=== PATIENT | female | born 1990 | race Caucasian/White ===

== ENCOUNTER 2020-10-22 07:47 | Emergency (ER) | payer SELFPAY ==
[2020-10-22] MEDS ORDERED: Sodium Chloride 0.9% 10 ML Syringe FLUSH PRN (07:56)
[2020-10-22] MEDS ORDERED: Sodium Chloride 0.9% 1,000 ML IV SCH (08:00)
[2020-10-22 09:09] LABS: ACETAMINOPHEN 0 ug/mL (10-30)
--- NOTE | 2020-10-22 09:29 | EDM.PDOC ---
ED HPI GENERAL MEDICAL PROBLEM - General Chief Complaint: Skin Complaint Stated Complaint: [facility] Time Seen by Provider: 10/22/20 07:50 Source of Information: Reports: Patient History Limitations: Reports: Intoxication - History of Present Illness INITIAL COMMENTS - FREE TEXT/NARRATIVE: Patient came in by ambulance from a public area. She was complaining about skin irritation. She denied that she had been exposed to toxic or irritating substance heat flame gases or any other exposure. She acknowledges using methamphetamine. During the course of the interview she expressed interest in getting medically cleared and being discharged to a nursing home. She does have chronic psoriatic lesions treatment for which is not evident at this point. Generalized Pain Score (Numeric/FACES): 8 - Related Data Allergies Allergy/AdvReac Type Severity Reaction Status Date / Time Penicillins Allergy Hives Verified 10/22/20 07:54 Home Meds: Home Meds . [No Known Home Meds] 10/22/20 [History] Past Medical History Psychiatric History: Reports: Anxiety Dermatologic History: Reports: Psoriasis Social & Family History - Tobacco Use Tobacco Use Status *Q: Current Every Day Tobacco User Years of Tobacco use: 8 Packs/Tins Daily: 1 - Recreational Drug Use Recreational Drug Use: Yes Drug Use in Last 12 Months: Yes Recreational Drug Type: Reports: Methamphetamine Recreational Drug Use Frequency: Daily ED ROS GENERAL - Review of Systems Review Of Systems: Comprehensive ROS is negative, except as noted in HPI. ED EXAM, SKIN/RASH Exam: See Below Text/Narrative:: On exam the patient is alert and does not appear ill. However she is mildly upset and complaining of skin irritation. Head normocephalic atraumatic. PERRLA EOMI. Neck supple without jugular venous distention. Lungs clear breath sounds full and equal bilaterally. Heart regular normal rate. Abdomen soft and nontender. No peripheral edema cyanosis or clubbing. Neurologically grossly intact. Speech is fluent. Gait is symmetrical. There are various chronic appearing skin lesions consistent with diagnosis of psoriasis. These are scattered across her upper chest upper extremities and elsewhere. None appear infected excoriated or otherwise with an acute situation. Psychiatrically the patient has somewhat pressured speech and some flight of ideas. She explicitly denies suicidal or homicidal ideation. Course - Vital Signs Text/Narrative:: We set about collecting clearance labs and other evaluations for discharge to a nursing home. The patient then changed her mind and decided she needed to leave and join friends who were waiting for her. A diligent attempt was made to get the patient to stay and be evaluated and be discharged to a secure environment. She insisted on leaving. As she was oriented x3, composed, denying suicidal homicidal ideation or other destructive intent, she was discharged and encouraged to return to the emergency department at any time for any concern. As much as we thought she was in need of care there was nothing observed and no grounds to hold the patient against her will. Last Recorded V/S: Last Vital Signs Temp 36.8 C 10/22/20 07:55 Pulse 85 10/22/20 07:55 Resp 16 10/22/20 07:55 BP 137/88 10/22/20 07:55 Pulse Ox 100 10/22/20 07:55 - Orders/Labs/Meds Orders: Active Orders 24 hr Category Date Time Status CBC WITH MANUAL DIFF [HEME] Stat Lab 10/22/20 08:30 Results CORONAVIRUS COVID-19 SARABJIT [MOLEC] Stat Lab 10/22/20 08:45 Received CULTURE URINE [RM] Stat Lab 10/22/20 08:50 Received SALICYLATE [CHEM] Stat Lab 10/22/20 08:30 Received Peripheral IV Insertion Adult [OM.PC] Stat Oth 10/22/20 07:57 Ordered Labs: Laboratory Tests 10/22/20 10/22/20 10/22/20 Range/Units 08:30 08:30 08:50 WBC 5.50 (3.98-10.04) K/mm3 RBC 4.52 (3.98-5.22) M/mm3 Hgb 11.7 (11.2-15.7) gm/dl Hct 37.5 (34.1-44.9) % MCV 83.0 (79.4-94.8) fl MCH 25.9 (25.6-32.2) pg MCHC 31.2 L (32.2-35.5) g/dl RDW Std Deviation 46.5 H (36.4-46.3) fL Plt Count 413 H (182-369) K/mm3 MPV 9.0 L (9.4-12.3) fl Sodium 141 (136-145) mEq/L Potassium 3.8 (3.5-5.1) mEq/L Chloride 103 (98-107) mEq/L Carbon Dioxide 25 (21-32) mEq/L Anion Gap 16.8 H (5-15) BUN 13 (7-18) mg/dL Creatinine 0.7 (0.55-1.02) mg/dL Est Cr Clr Drug Dosing 121.69 mL/min Estimated GFR (MDRD) > 60 (>60) mL/min BUN/Creatinine Ratio 18.6 H (14-18) Glucose 98 (74-106) mg/dL Calcium 9.4 (8.5-10.1) mg/dL Magnesium 1.9 (1.8-2.4) mg/dl Total Bilirubin 0.5 (0.2-1.0) mg/dL AST 67 H (15-37) U/L ALT 136 H (14-59) U/L Alkaline Phosphatase 74 (46-116) U/L Total Protein 8.0 (6.4-8.2) g/dl Albumin 4.0 (3.4-5.0) g/dl Globulin 4.0 gm/dL Albumin/Globulin Ratio 1.0 (1-2) TSH 3rd Generation 0.660 (0.358-3.74) uIU/mL Urine Color (Yellow) Urine Appearance (Clear) Urine pH (5.0-8.0) Ur Specific [place] (1.005-1.030) Urine Protein (Negative) Urine Glucose (UA) (Negative) Urine Ketones (Negative) Urine Occult Blood (Negative) Urine Nitrite (Negative) Urine Bilirubin (Negative) Urine Urobilinogen (0.2-1.0) Ur Leukocyte Esterase (Negative) Urine RBC (0-5) /hpf Urine WBC (0-5) /hpf Ur Squamous Epith Cells (0-5) /hpf Urine Bacteria (FEW) /hpf Urine Mucus (FEW) /hpf Urine Yeast (Budding) (NOT SEEN) Urine HCG, Qual Negative (NEGATIVE) Urine Opiates Screen (LEYMTW=044) Ur Buprenorphine Scrn (CUTOFF=10) Ur Oxycodone Screen (SGE2TO=716) Urine Methadone Screen (PYFQXI=490) Ur Propoxyphene Screen (QOSZOB=668) Acetaminophen 0 L (10-30) ug/mL Ur Barbiturates Screen (CSOXTV=001) Ur Tricyclics Screen (SOLTNY=701) Ur Phencyclidine Scrn (CUTOFF=25) Ur Amphetamine Screen (BHAWBW=927) U Methamphetamines Scrn (ONQVRV=955) U Benzodiazepines Scrn (RZLPVV=526) U Cocaine Metab Screen (ZWKKFN=693) U Marijuana (THC) Screen (CUTOFF=50) Ethyl Alcohol 0.00 (0.00) gm% 10/22/20 10/22/20 Range/Units 08:50 08:50 WBC (3.98-10.04) K/mm3 RBC (3.98-5.22) M/mm3 Hgb (11.2-15.7) gm/dl Hct (34.1-44.9) % MCV (79.4-94.8) fl MCH (25.6-32.2) pg MCHC (32.2-35.5) g/dl RDW Std Deviation (36.4-46.3) fL Plt Count (182-369) K/mm3 MPV (9.4-12.3) fl Sodium (136-145) mEq/L Potassium (3.5-5.1) mEq/L Chloride (98-107) mEq/L Carbon Dioxide (21-32) mEq/L Anion Gap (5-15) BUN (7-18) mg/dL Creatinine (0.55-1.02) mg/dL Est Cr Clr Drug Dosing mL/min Estimated GFR (MDRD) (>60) mL/min BUN/Creatinine Ratio (14-18) Glucose (74-106) mg/dL Calcium (8.5-10.1) mg/dL Magnesium (1.8-2.4) mg/dl Total Bilirubin (0.2-1.0) mg/dL AST (15-37) U/L ALT (14-59) U/L Alkaline Phosphatase (46-116) U/L Total Protein (6.4-8.2) g/dl Albumin (3.4-5.0) g/dl Globulin gm/dL Albumin/Globulin Ratio (1-2) TSH 3rd Generation (0.358-3.74) uIU/mL Urine Color Yellow (Yellow) Urine Appearance Slt cloudy H (Clear) Urine pH 5.5 (5.0-8.0) Ur Specific [place] > or = 1.030 (1.005-1.030) Urine Protein 1+ H (Negative) Urine Glucose (UA) Negative (Negative) Urine Ketones Negative (Negative) Urine Occult Blood 3+ H (Negative) Urine Nitrite Positive H (Negative) Urine Bilirubin Negative (Negative) Urine Urobilinogen 0.2 (0.2-1.0) Ur Leukocyte Esterase Negative (Negative) Urine RBC 10-20 H (0-5) /hpf Urine WBC 0-5 (0-5) /hpf Ur Squamous Epith Cells 5-10 H (0-5) /hpf Urine Bacteria Moderate H (FEW) /hpf Urine Mucus Few (FEW) /hpf Urine Yeast (Budding) Few H (NOT SEEN) Urine HCG, Qual (NEGATIVE) Urine Opiates Screen Negative (UVIBZM=502) Ur Buprenorphine Scrn Negative (CUTOFF=10) Ur Oxycodone Screen Negative (PHE8TM=964) Urine Methadone Screen Negative (IOYMNM=616) Ur Propoxyphene Screen Negative (MLVOQP=528) Acetaminophen (10-30) ug/mL Ur Barbiturates Screen Negative (YEBZHD=334) Ur Tricyclics Screen Negative (HPKRII=831) Ur Phencyclidine Scrn Negative (CUTOFF=25) Ur Amphetamine Screen Presumptive positive H (RQFODP=932) U Methamphetamines Scrn Presumptive positive H (VCHRXZ=777) U Benzodiazepines Scrn Negative (NDUCKV=706) U Cocaine Metab Screen Negative (ODKOZJ=772) U Marijuana (THC) Screen Presumptive positive H (CUTOFF=50) Ethyl Alcohol (0.00) gm% Meds: Medications Discontinued Medications Generic Name Dose Route Start Last Admin Trade Name Freq PRN Reason Stop Dose Admin Sodium Chloride 1,000 mls @ 150 mls/hr 10/22/20 08:00 Normal Saline IV ASDIRECTED STEVEN Sodium Chloride 10 ml 10/22/20 07:56 Sodium Chloride 0.9% 10 Ml Syringe FLUSH ASDIRECTED PRN Keep Vein Open Departure - Departure Time of Disposition: 09:32 Disposition: Home, Self-Care 01 Condition: Good Clinical Impression: Methamphetamine abuse, Psoriasis - Discharge Information Referrals: PCP,None [Primary Care Provider] - Forms: ED Department Discharge Additional Instructions: You have been seen for issues related to methamphetamine abuse. We agree with your initial desire to be discharged to a nursing home. We would have preferred that you stay for a full evaluation and a discharge to a secure environment. You are welcome to return to the hospital at any time for any concern that you may have. Should you desire drug rehabilitation we will arrange for that. Please seek medical care from your primary [facility]. Sepsis Event Note (ED) - Evaluation Sepsis Screening Result: No Definite Risk - Focused Exam Vital Signs: Vital Signs Temp Pulse Resp BP Pulse Ox 10/22/20 07:55 36.8 C 85 16 137/88 100 - My Orders Last 24 Hours: My Active Orders 10/22/20 07:57 Peripheral IV Insertion Adult [OM.PC] Stat 10/22/20 08:30 CBC WITH MANUAL DIFF [HEME] Stat SALICYLATE [CHEM] Stat 10/22/20 08:45 CORONAVIRUS COVID-19 SARABJIT [MOLEC] Stat 10/22/20 08:50 CULTURE URINE [RM] Stat - Assessment/Plan Last 24 Hours: My Active Orders 10/22/20 07:57 Peripheral IV Insertion Adult [OM.PC] Stat 10/22/20 08:30 CBC WITH MANUAL DIFF [HEME] Stat SALICYLATE [CHEM] Stat 10/22/20 08:45 CORONAVIRUS COVID-19 SARABJIT [MOLEC] Stat 10/22/20 08:50 CULTURE URINE [RM] Stat
== END 2020-10-22 09:02 | disposition home or self-care (01) ==
LOC: JD.ED 07:47
DX: F15.10 Other stimulant abuse, uncomplicated (principal); L40.9 Psoriasis, unspecified; F17.210 Nicotine dependence, cigarettes, uncomplicated; Z88.0 Allergy status to penicillin
CPT/HCPCS: 36415; 80053; 80143; 80179; 80306; 80307; 81001; 81025; 83735; 84443; 85007; 85027; 87086; 87088; 87186; 93005; 99283; 99284-25; U0002